=== PATIENT | male | born 2000 ===

== ENCOUNTER 2021-07-14 09:29 | Emergency (ER) | payer MEDICAID ==
[~2021-07-14] VITALS: Ht 162.6 cm; Wt 100.0 kg
[2021-07-14] MEDS ORDERED: ABIL5 PO (09:43)
[2021-07-14] MEDS ORDERED: SERT25TA74 PO (09:43)
[2021-07-14] MEDS ORDERED: HYDROCODONE/ACETAMINOPHEN 5/325MG TABLET PO ONE (12:00)
[2021-07-14] MEDS ORDERED: IBUPROFEN 600MG TABLET PO ONE (12:00)
[2021-07-14 14:00] VITALS: BP 117/76
[2021-07-14] MEDS ORDERED: IBUP-2029 MT (14:20)
== END 2021-07-14 14:41 | disposition home or self-care (01) ==
LOC: ER 10:09
DX: S22.32XA Fracture of one rib, left side, initial encounter for closed fracture (principal); S27.9XXA Injury of unspecified intrathoracic organ, initial encounter; F17.290 Nicotine dependence, other tobacco product, uncomplicated; F12.10 Cannabis abuse, uncomplicated; V49.9XXA Car occupant (driver) (passenger) injured in unspecified traffic accident, initial encounter; Y93.89 Activity, other specified; Y92.89 Other specified places as the place of occurrence of the external cause; Y99.8 Other external cause status
CPT/HCPCS: 71250; 93005; 99284; 99406